=== PATIENT | male | born 1970 | race Caucasian/White ===

== ENCOUNTER 2022-01-22 12:53 | Day surgery (SDC) | payer BC, OTHER ==
[~2022-01-22] VITALS: Ht 175.3 cm; Wt 75.4 kg
--- NOTE | 2022-01-22 14:35 | NUR ---
01/22/22 1435 Rachel Schulte 1431- PT ARRIVES TO PACU AROUSABLE TO VERBAL STIMULI. PT FALLS BACK TO SLEEP WHEN NOT BEING TALKED TO. RESP EVEN AND UNLABORED. OXYGEN SAT MID TO HIGH 90'S ON RA.
--- NOTE | 2022-01-22 15:13 | OR ---
[facility] [address], [place] [address] Signed DATE OF OPERATION: 01/22/2022 SURGEON: Reyna Person MD PREOPERATIVE DIAGNOSIS: Colon screening. POSTOPERATIVE DIAGNOSIS: Normal colon to cecum. PROCEDURE: Total colonoscopy to cecum. ANESTHESIA: Intravenous sedation, fentanyl 100 mcg and Versed 10 mg. 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 He is here for screening colonoscopy. His primary care provider is CHIARA Ramos. He has no symptoms of bleeding, diarrhea or constipation and has no family history of colon cancer. He is admitted at this time to undergo screening colonoscopy. He understands the risk of bleeding, infection and perforation. FINDINGS: The prep was excellent. Complete colonoscopy was undertaken to the cecum without question. He had no evidence of polyps, diverticular formation, colitis, or cancer. DESCRIPTION OF PROCEDURE: The patient was brought to the endoscopy suite and placed in the lateral decubitus position given intravenous sedation to the point of slurred speech and nystagmus. Digital rectal examination was normal. An Olympus video colonoscope was passed in the rectum and manipulated throughout the colon ultimately intubating the right colon with visualization of the cecum. Various manipulations were undertaken to fully intubate the cecum. However, this was not forthcoming with some amount of discomfort and on that basis, a cold morcellation biopsy device was used to elevate the mucosa directly behind the ileocecal valve. This area of the cecum was completely free of abnormality. The scope was then withdrawn and examination throughout showed no evidence of polyps, diverticular formation, colitis, or cancer. Retroflexed view was normal as well. Scope was removed and the patient was Electronically Signed By: REYNA PERSON MD 01/22/22 1513 PATIENT NAME: RAMIRO BAHENA OPERATIVE REPORT DATE OF : 72 REPORT #: [id number] PHYSICIAN: REYNA PERSON MD PCP: NORBERTO MENDOZA PA-C REPORT IS CONFIDENTIAL AND NOT TO BE RELEASED WITHOUT AUTHORIZATION [facility] [address], [place] [address] Signed taken to the recovery room in good condition. CONCLUDING DIAGNOSIS: Normal colon. PLAN: Recommend repeat colonoscopy in 10 years, sooner if clinically indicated. He will return to the ongoing care of CHIARA Ramos. MD EVARISTO Reyes/MODL /[id number] cc: CHIARA Ramos Copies: ~ Electronically Signed By: REYNA PERSON MD 01/22/22 1513 PATIENT NAME: RAMIRO BAHENA OPERATIVE REPORT DATE OF : 72 REPORT #: [id number] PHYSICIAN: REYNA PERSON MD PCP: NORBERTO MENDOZA PA-C REPORT IS CONFIDENTIAL AND NOT TO BE RELEASED WITHOUT AUTHORIZATION
== END 2022-01-22 15:07 | disposition home or self-care (01) ==
LOC: OPS 12:53 → DS 12:55 → OPS 14:00 → DS 14:00 → OPS 15:07
PROVIDERS: ATTEND Surgery
PROC: 0DJD8ZZ Inspection of Lower Intestinal Tract, Via Natural or Artificial Opening Endoscopic (ICD-10-PCS; principal; 2022-01-22 14:00)
DX: Z12.11 Encounter for screening for malignant neoplasm of colon (principal); Z90.49 Acquired absence of other specified parts of digestive tract; Z98.890 Other specified postprocedural states
CPT/HCPCS: 99153; G0500; J2250; J3010; J7121